=== PATIENT | female | born 1965 | race African-American/Black ===

== ENCOUNTER 2025-02-19 03:18 | Emergency (ER) | payer MEDICARE, MEDICAID ==
[~2025-02-19] VITALS: Ht 165.1 cm; Wt 77.0 kg
[~2025-02-19 03:18] MED LIST: SEE MED SHEET
[2025-02-19 03:32] VITALS: O2SAT 100
[2025-02-19] MEDS: ACETAMINOPHEN 500MG TABLET PO ONE (06:43)
[2025-02-19 10:26] VITALS: BP 161/76; PULSE 82; RESP 16; TEMP 37; O2SAT 100
== END 2025-02-19 10:27 | disposition home or self-care (01) ==
LOC: ER 03:46
DX: M79.642 Pain in left hand (principal); E11.9 Type 2 diabetes mellitus without complications; I10 Essential (primary) hypertension; J45.909 Unspecified asthma, uncomplicated; Z88.6 Allergy status to analgesic agent; Z90.710 Acquired absence of both cervix and uterus
CPT/HCPCS: 73030; 73110; 73120; 73610; 99284